=== PATIENT | female | born 1985 | race Caucasian/White ===

== ENCOUNTER 2016-08-29 17:56 | Emergency (ER) ==
[2016-08-29 18:07] VITALS: BP 120/74; TEMP 99.2; BMI 28.1
--- NOTE | 2016-08-29 18:14 | ED.PDOC ---
General ED Provider: Dr. BRENNA GIRON Chief Complaint: Non-specific Complaint Stated Complaint: patient c/o pain to left lower ribs. states it started in right lower ribs but went around to left. states she thinks it is her kidneys again. no change in urination but states it does have a smell and is orange in color. denies cough. states has had chills. but unsure if ran fever. also c/o headache Time Seen by Physician: 18:10 Mode of Arrival: Walk-In Information Source: Patient Exam Limitations: No limitations Nursing and Triage Documentation Reviewed and Agree: Yes Complaint Exam - Complaint/Exam Patient Complains of: Reports: Pain (upper abdomen ) Onset/Duration: 4 days Symptoms Are: Still present Timing: Constant Initial Severity: Moderate Current Severity: Severe Location of Pain: Reports: Right, Left, Flank Character: Reports: Sharp Aggravating: Reports: None Alleviating: Reports: None Associated Signs and Symptoms: Reports: Abdominal Pain. Denies: Diaphoresis, Back pain, Fever, Hematuria, Dysuria, Constipation, Blood in stool, Rectal pain , Appetite change, Nausea, Vomiting, Decreased urine output, Increased urine frequency, Increased thirst, Decreased activity, Lethargy, Bubble bath use, Vaginal bleeding, Vaginal discharge, Genital swelling, Genital blisters, Retained foreign body Ectopic Risk Factors: Reports: None Ovarian Torsion Risk Factors: Reports: None Surgical Obstruction Risk Factors: Reports: None RH Status: Unknown Abdominal Findings: Absent: McBurney's Point tender Differential Diagnoses: Renal Colic, Ureteral Stone, UTI Review of Systems - Review Of Systems Constitutional: Reports: Loss of appetite Eyes: Reports: No symptoms Ears, Nose, Mouth, Throat: Reports: No symptoms Respiratory: Reports: No symptoms Cardiac: Reports: Chest pain (lower Ribs bilaterally ) GI: Reports: Abdominal pain : Denies: Dysuria, Discharge, Flank pain Musculoskeletal: Reports: No symptoms Skin: Reports: No symptoms Neurological: Reports: No symptoms Endocrine: Reports: No symptoms Hematologic/Lymphatic: Reports: No symptoms All Other Systems: Reviewed and Negative Past Medical History - Past Medical History Previously Healthy: Yes Endocrine: Reports: None Cardiovascular: Reports: None Respiratory: Reports: Asthma Hematological: Reports: None Gastrointestinal: Reports: None Genitourinary: Reports: None Neuro/Psych: Reports: None Musculoskeletal: Reports: None Cancer: Reports: None Last Menstrual Period: now - Surgical History General Surgical History: Reports: Cholecystectomy, Tonsillectomy, Orthopedic ( Right foot ), Other (Nose ) - Family History Family History: Reports: Unknown - Social History Smoking Status: Current every day smoker Hx Substance Use: No Alcohol Screening: Occasionally Physical Exam - Physical Exam Appearance: Ill-appearing Ill-appearing: Moderate Pain Distress: Severe Neck: Supple Respiratory: Airway patent Cardiovascular: RRR GI/: Soft, Tender Musculoskeletal: Normal strength, ROM intact, No edema, No calf tenderness Skin: Warm, Dry Neurological: Sensation intact Psychiatric: Anxious Interpretation - Radiology Interpretation Radiology Interpretation By: Radiologist Radiology Results: Negative Exam Interpreted: CT Scan (Abdomen and pelvis. ) Critical Care Note - Critical Care Note Total Time (mins): 0 Course - Course Hematology/Chemistry: 08/29/16 18:51 08/29/16 18:51 Orders, Labs, Meds: Lab Review 08/29/16 08/29/16 18:10 18:51 WBC 9.99 RBC 5.13 Hgb 15.2 Hct 45.6 MCV 88.9 MCH 29.6 MCHC 33.3 RDW Coeff of Caitlin 14.9 H Plt Count 213 Immature Gran % (Auto) 0.4 Neut % (Auto) 57.6 Lymph % (Auto) 33.2 [place] % (Auto) 6.0 Eos % (Auto) 2.1 Baso % (Auto) 0.7 Immature Gran # (Auto) 0.0 Neut # 5.8 Lymph # 3.3 [place] # 0.6 Eos # 0.2 Baso # 0.1 Sodium 142 Potassium 3.5 Chloride 107 Carbon Dioxide 25 Anion Gap 13.5 BUN 8 Creatinine 0.84 Estimated GFR (MDRD) 80.00 BUN/Creatinine Ratio 9.52 Glucose 120 H Calcium 9.7 Total Bilirubin 0.45 AST 54 H ALT 71 Alkaline Phosphatase 102 H Total Protein 7.7 Albumin 3.8 Globulin 3.9 Albumin/Globulin Ratio 0.97 Amylase 55 Lipase 12 Urine Color Yellow Urine Clarity Cloudy Urine pH 5.5 Ur Specific [place] 1.025 Urine Protein Negative Urine Glucose (UA) Negative Urine Ketones Trace Urine Blood Negative Urine Nitrite Negative Urine Bilirubin 1+ Urine Urobilinogen 4.0 Ur Leukocyte Esterase Negative Urine Test Negative Orders Category Date Time Status ED IV/MEDIPORT/POWERPORT .ONCE EMERGENCY 08/29/16 18:36 Active AMYLASE Stat LAB 08/29/16 18:51 Completed CBC W/ AUTO DIFF Stat LAB 08/29/16 18:51 Completed COMPREHENSIVE METABOLIC PANEL Stat LAB 08/29/16 18:51 Completed LIPASE Stat LAB 08/29/16 18:51 Completed URINALYSIS C & S IF INDICATED Stat LAB 08/29/16 18:10 Completed URINE Stat LAB 08/29/16 18:10 Completed 0.9 % Sodium Chloride [Saline Flush] MEDS 08/29/16 18:36 Discontinued 1 syr IVF PRN PRN Ketorolac Tromethamine [Toradol] MEDS 08/29/16 18:43 Discontinued 30 mg IVP ONCE STA Ondansetron HCl/Pf [Zofran 4 mg/2 ml] MEDS 08/29/16 18:36 Discontinued 4 mg IVP ONCE STA Sodium Chloride 0.9% [Sodium Chloride] 1,000 ml MEDS 08/29/16 18:[address] ABD/PEL WO RENAL STONE PROT Stat RADS 08/29/16 18:36 Completed Medications Discontinued Medications Generic Name Dose Route Start Last Admin Trade Name Freq PRN Reason Stop Dose Admin Sodium Chloride 1,000 mls @ 1,000 mls/hr 08/29/16 18:36 08/29/16 19:06 Sodium Chloride IV 08/29/16 19:35 1,000 mls/hr BOLUS STA Administration Ketorolac Tromethamine 30 mg 08/29/16 18:43 08/29/16 19:07 Toradol IVP 08/29/16 18:44 30 mg ONCE STA Administration Ondansetron HCl 4 mg 08/29/16 18:36 08/29/16 19:06 Zofran 4 Mg/2 Ml IVP 08/29/16 18:37 4 mg ONCE STA Administration Sodium Chloride 1 syr 08/29/16 18:36 08/29/16 19:10 Saline Flush IVF 1 syr PRN PRN Administration To flush IV Vital Signs: Temp Pulse Resp BP Pulse Ox 08/29/16 17:58 99.2 F 69 16 120/74 98 Departure - Departure Time of Disposition: 20:02 Disposition: HOME SELF-CARE Discharge Problem: Abdominal pain Qualifiers: Abdominal location: generalized Qualifier Code: (R10.84) Generalized abdominal pain Instructions: Acute Abdominal Pain (ED) Condition: Fair Pt referred to PMD for follow-up: Yes Additional Instructions: Push fluids Rest Take pain medications as prescribed. Prescriptions: Tramadol HCl [Ultram] 50 mg PO Q6H PRN #25 tablet PRN Reason: Severe Pain Allergies/Adverse Reactions: Allergies No Known Allergies Allergy (Unverified 08/29/16 18:03) Home Medications: Ambulatory Orders Tramadol HCl [Ultram] 50 mg PO Q6H PRN #25 tablet 08/29/16 Disposition Discussed With: Patient
[2016-08-29 18:20] LABS: BILIRUBIN,URINE 1+ (NEGATIVE); KETONES,URINE Trace (NEGATIVE); LEUKOCYTE ESTERASE ,URINE Negative (NEGATIVE); NITRITE,URINE Negative (NEGATIVE); PH,URINE 5.5 (5-9); PROTEIN,URINE Negative (NEGATIVE); URINE, BLOOD Negative (NEGATIVE)
[2016-08-29 18:22] LABS: URINE PREGNANCY INTERNAL QC INTERNAL QC VALID
[2016-08-29 18:26] LABS: ADD URINE MICROSCOPIC NO
[2016-08-29] MEDS ORDERED: DILAUDID 1 MG/ML SYRINGE IVP STA (18:36)
[2016-08-29] MEDS ORDERED: MORPHINE 4 MG/ML SYRINGE IVP STA (18:36)
[2016-08-29] MEDS ORDERED: ZOFRAN 4 MG/2 ML IVP STA (18:36)
[2016-08-29] MEDS ORDERED: SODIUM CHLORIDE 1,000 ML IV STA (18:36)
[2016-08-29] MEDS ORDERED: TORADOL IVP STA (18:43)
[2016-08-29 18:58] LABS: BASOPHILS # (AUTO) 0.1 K/uL (0-0.2); BASOPHILS % (AUTO) 0.7 % (0.0-3.0); EOSINOPHILS # (AUTO) 0.2 K/ul (0.0-0.7); EOSINOPHILS % (AUTO) 2.1 % (0.0-7.0); HEMATOCRIT 45.6 % (37.0-47.0); HEMOGLOBIN 15.2 g/dl (12.0-16.0); IMMATURE GRANULOCYTE % (AUTO) 0.4 % (0.0-5.0); LYMPHOCYTES # (AUTO) 3.3 K/uL (0.60-3.4); LYMPHOCYTES % (AUTO) 33.2 (10.0-50.0); MEAN CORPUSCULAR HEMOGLOBIN 29.6 pg (27.0-31.0); MEAN CORPUSCULAR HGB CONC 33.3 (31.8-35.4); MEAN CORPUSCULAR VOLUME 88.9 fl (81.0-99.0); MONOCYTES # (AUTO) 0.6 K/uL (0.4-2.0); NEUTROPHILS # (AUTO) 5.8 K/ul (2.0-6.9); NEUTROPHILS % (AUTO) 57.6; PLATELET COUNT 213 10^3/uL (140-440); RED BLOOD COUNT 5.13 10^6/ul (4.20-5.40); WHITE BLOOD COUNT 9.99 K/ul (4.6-10.2)
[2016-08-29 19:19] LABS: ALBUMIN 3.8 g/dL (3.4-5.0); ALBUMIN/GLOBULIN RATIO 0.97; ANION GAP 13.5; BILIRUBIN,TOTAL 0.45 mg/dL (0.00-1.20); BUN/CREATININE RATIO 9.52; CALCIUM 9.7 mg/dL (8.2-10.2); CREATININE 0.84 mg/dL (0.60-1.30); POTASSIUM 3.5 mmol/L (3.5-5.10); TOTAL PROTEIN 7.7 g/dL (6.4-8.2)
--- NOTE | 2016-08-29 19:46 | CT ---
EXAM: CT Abdomen without contrast. CT Pelvis without contrast. HISTORY: Upper abdominal pain. COMPARISON: None available. TECHNIQUE: Multiple axial images of the abdomen and pelvis were obtained without intravenous contra st. Images were reformatted in the coronal plane. FINDINGS: Please note that evaluation of the abdominal and pelvic structures is limited due to lack of intravenous contrast. The lung bases are clear. No acute osseous abnormality identified. There is ankylosis across both sacroiliac joints. The gallbladder is absent. The liver, pancreas, spleen, adrenal glands and kidneys demonstrate norm al contour. No calcified renal stones or hydronephrosis detected. The bowel is normal in course and caliber without evidence for obstruction or inflammatory process. The appendix is normal. Uterus demonstrates normal contour. Urinary bladder is unremarkable. Phl eboliths noted in the pelvis. No free fluid or free air identified IMPRESSION: No acute abnormality in the abdomen or pelvis.
== END 2016-08-29 20:22 | disposition home or self-care (01) ==
LOC: ED 17:56
DX: R10.84 Generalized abdominal pain (principal); R07.89 Other chest pain; F17.210 Nicotine dependence, cigarettes, uncomplicated
CPT/HCPCS: 36415; 74176; 80053; 81001; 81025; 82150; 83690; 85025; 96361; 96374; 96375; 99283

== ENCOUNTER 2016-09-16 12:36 | Outpatient (CLI) | END 2016-09-16 12:37 | LOC: AMBL 12:36 | PROVIDERS: ATTEND Internal Medicine | DX: Z04.1 Encounter for examination and observation following transport accident (principal); V48.5XXA Car driver injured in noncollision transport accident in traffic accident, initial encounter ==

== ENCOUNTER 2017-02-08 23:43 | Emergency (ER) ==
--- NOTE | 2017-02-08 23:53 | ED.PDOC ---
General ED Provider: Dr. CARLOS ARTEAGA-ER Chief Complaint: Laceration Stated Complaint: i cut myself on a window going up the stairs Time Seen by Physician: 23:51 Mode of Arrival: Walk-In Information Source: Patient Exam Limitations: No limitations Nursing and Triage Documentation Reviewed and Agree: Yes Skin Complaint Exam - Laceration/Abrasion/Hand Complaint/Exam Location of Injury: Left, Digit #1 Mechanism of Injury: Laceration Onset/Duration: 30min Symptoms Are: Still present Initial Severity: Mild Current Severity: Mild Aggravating: Movement Alleviating: Compression Associated Signs and Symptoms: Denies: Fever, Chills, Erythema, Numbness, Tingling Differential Diagnoses: Laceration Review of Systems - Review Of Systems Constitutional: Reports: No symptoms Eyes: Reports: No symptoms Ears, Nose, Mouth, Throat: Reports: No symptoms Respiratory: Reports: No symptoms Cardiac: Reports: No symptoms GI: Reports: No symptoms : Reports: No symptoms Musculoskeletal: Reports: No symptoms Skin: Reports: No symptoms Neurological: Reports: No symptoms Endocrine: Reports: No symptoms Hematologic/Lymphatic: Reports: No symptoms All Other Systems: Reviewed and Negative Past Medical History - Past Medical History Previously Healthy: Yes Endocrine: Reports: None Cardiovascular: Reports: None Respiratory: Reports: Asthma Hematological: Reports: None Gastrointestinal: Reports: None Genitourinary: Reports: None Neuro/Psych: Reports: None Musculoskeletal: Reports: None Cancer: Reports: None Last Menstrual Period: 01/15/17 - Surgical History General Surgical History: Reports: Cholecystectomy, Tonsillectomy, Orthopedic ( Right foot ), Other (Nose ) - Family History Family History: Reports: Unknown - Social History Smoking Status: Current every day smoker, Light tobacco smoker Hx Substance Use: No Alcohol Screening: Occasionally Lives: With family - Immunizations Tetanus Shot up to Date: Yes Physical Exam - Physical Exam Appearance: Well-appearing, No pain distress, Well-nourished Pain Distress: Mild Eyes: BUBBA, EOMI, Conjunctiva clear ENT: Ears normal Neck: Supple Respiratory: Airway patent, Breath sounds clear, Breath sounds equal, Respirations nonlabored Cardiovascular: RRR, Pulses normal, No rub, No murmur GI/: Soft Musculoskeletal: Normal strength, ROM intact, No edema, No calf tenderness Skin: Warm Neurological: Sensation intact Psychiatric: Affect appropriate Procedures - Laceration/Wound Repair No standard instances Wound Description: Linear Wound Length (cm): 1.0cm left thumb Wound Explored: Clean Wound Irrigated: Yes Wound Prep: Hibiclens Anesthesia: Lidocaine Wound Repaired With: Sutures Suture Size and Type: 4.0 prolene Number of Sutures: 2 Layer Closure?: No Sterile Dressing Applied?: Yes Splint Applied?: No Sling Applied?: No Critical Care Note - Critical Care Note Total Time (mins): 0 Course - Course Orders, Labs, Meds: because of the nature of the injury--i wanted to do xrays but she declines--she understands she might have underlying fx but she was insistent she did not want xrays Vital Signs: Temp Pulse Resp BP Pulse Ox 02/08/17 23:44 98.8 F 108 H 20 96/80 96 Departure - Departure Time of Disposition: 23:54 Disposition: HOME SELF-CARE Discharge Problem: Laceration of thumb Qualifiers: Encounter type: initial encounter Damage to nail status: unspecified Foreign body presence: without foreign body Laterality: right Qualifier Code: (S61.011A ) Laceration without foreign body of right thumb without damage to nail, initial encounter Instructions: Laceration (ED), Finger Laceration (ED), Care For Your Stitches ( ED) Condition: Good Pt referred to PMD for follow-up: Yes Additional Instructions: routine suture care--sutures out in 7 days--return if any signs of infection Allergies/Adverse Reactions: Allergies No Known Allergies Allergy (Unverified 08/29/16 18:03) Home Medications: Ambulatory Orders Tramadol HCl [Ultram] 50 mg PO Q6H PRN #25 tablet 08/29/16 Disposition Discussed With: Patient
[2017-02-09 00:04] VITALS: BP 96/80; TEMP 98.8; BMI 25.7
[2017-02-09] MEDS ORDERED: LIDOCAINE 1 % AMP 5 ML (SUTURES) ID STA (00:08)
== END 2017-02-09 00:12 | disposition home or self-care (01) ==
LOC: ED 23:43
DX: S61.012A Laceration without foreign body of left thumb without damage to nail, initial encounter (principal); W25.XXXA Contact with sharp glass, initial encounter; F17.210 Nicotine dependence, cigarettes, uncomplicated
CPT/HCPCS: 99283

== ENCOUNTER 2017-08-15 17:07 | Inpatient (IN) ==
[2017-08-15 17:14] VITALS: BMI 22.8
--- NOTE | 2017-08-15 18:10 | ED.PDOC ---
General ED Provider: Dr. CARLOS RODRIGUEZ Chief Complaint: Urinary Problem Stated Complaint: Rt Flank Pain. Onset earlier today; Progressively worsened. Concered she may have kidney infection as she previouls developed urosepsis several years ago. Time Seen by Physician: 17:15 Mode of Arrival: Walk-In Information Source: Patient Exam Limitations: No limitations Nursing and Triage Documentation Reviewed and Agree: Yes Reviewed sepsis parameters & appropriate labs ordered?: Yes System Inflammatory Response Syndrome: Not Applicable Sepsis Protocol: For patient's 13 years and over: Temp is 96.8 and below OR 101 and greater Pulse >90 BPM Resp >20/minute Acutely Altered Mental Status Are patient's symptoms suggestive of a new infection, such as: -Pneumonia -Skin, Soft Tissue -Endocarditis -UTI -Bone, Joint Infection -Implantable Device -Acute Abdominal Infection -Wound Infection -Meningitis -Blood Stream Catheter Infection -Unknown System Inflammatory Response Syndrome: Not Applicable Complaint Exam - UTI Female Complaint/Exam Patient Complains of: Denies: Painful urination, Blood in urine Symptoms Are: Still present Timing: Constant Initial Severity: Moderate Current Severity: Moderate Location of Pain: Reports: Right, Flank Associated Signs and Symptoms: Reports: Flank pain. Denies: Fever, Chills, Vaginal discharge Related History: Reports: Similar episode Related Surgical History: Reports: None CVA Tenderness: Yes Differential Diagnoses: Pyelonephritis Review of Systems - Review Of Systems Constitutional: Reports: No symptoms Eyes: Reports: No symptoms Ears, Nose, Mouth, Throat: Reports: No symptoms Respiratory: Reports: No symptoms Cardiac: Reports: No symptoms GI: Reports: No symptoms : Reports: Flank pain Musculoskeletal: Reports: No symptoms Skin: Reports: No symptoms Neurological: Reports: No symptoms Endocrine: Reports: No symptoms Hematologic/Lymphatic: Reports: No symptoms All Other Systems: Reviewed and Negative Past Medical History - Past Medical History Previously Healthy: Yes Endocrine: Reports: None Cardiovascular: Reports: None Respiratory: Reports: Asthma Hematological: Reports: None Gastrointestinal: Reports: None Genitourinary: Reports: None Neuro/Psych: Reports: None Musculoskeletal: Reports: None Cancer: Reports: None Last Menstrual Period: 07/2017 - Surgical History General Surgical History: Reports: Cholecystectomy, Tonsillectomy, Orthopedic ( Right foot ), Other (Nose ) - Family History Family History: Reports: Unknown - Social History Smoking Status: Current some day smoker Hx Substance Use: No Alcohol Screening: None - Immunizations Tetanus Shot up to Date: Yes Physical Exam - Physical Exam Appearance: Well-appearing, Ill-appearing Ill-appearing: Mild Pain Distress: Moderate Eyes: BUBBA, EOMI, Conjunctiva clear ENT: Ears normal, Nose normal, Oropharynx normal Neck: Nonsupple Respiratory: Airway patent, Breath sounds clear, Breath sounds equal Cardiovascular: RRR, Pulses normal GI/: Soft, Tender (No guarding or rebound), Bowel sounds hypoactive Musculoskeletal: Normal strength, ROM intact Skin: Warm, Dry Psychiatric: Affect appropriate, Mood appropriate Re-Evaluation - Re-Evaluation Time of Re-Evaluation: 18:50 Status: Unchanged Vital Signs Stable: Yes Appearance: NAD Neuro: Alert and Oriented X3 Additional Comments: IV started /CT scheduled Physician Notification - Case Discussed Physician Notified: Dr Guerrero Time of Notification: 19:50 (Discussed case/agreed to accept patient for care for remainder of time in ER pending result of CT scan; ) Critical Care Note - Critical Care Note Total Time (mins): 0 Course - Course Hematology/Chemistry: 08/15/17 18:20 08/15/17 18:20 Orders, Labs, Meds: Lab Review 08/15/17 08/15/17 08/15/17 17:20 17:20 18:20 WBC 15.63 H RBC 4.60 Hgb 13.4 Hct 39.8 MCV 86.5 MCH 29.1 MCHC 33.7 RDW Coeff of Caitlin 14.5 Plt Count 199 Immature Gran % (Auto) 0.5 Neut % (Auto) 76.5 Lymph % (Auto) 15.9 [place] % (Auto) 6.3 Eos % (Auto) 0.4 Baso % (Auto) 0.4 Immature Gran # (Auto) 0.1 Neut # 12.0 H Lymph # 2.5 [place] # 1.0 Eos # 0.1 Baso # 0.1 Sodium Potassium Chloride Carbon Dioxide Anion Gap BUN Creatinine Estimated GFR (MDRD) BUN/Creatinine Ratio Glucose Calcium Total Bilirubin AST ALT Alkaline Phosphatase Total Protein Albumin Globulin Albumin/Globulin Ratio Urine Color Yellow Urine Clarity Clear Urine pH 7.0 Ur Specific [place] 1.015 Urine Protein Negative Urine Glucose (UA) Negative Urine Ketones Negative Urine Blood Negative Urine Nitrite Negative Urine Bilirubin Negative Urine Urobilinogen 0.2 Ur Leukocyte Esterase Negative Urine Test Negative 02/03/18 18:20 WBC RBC Hgb Hct MCV MCH MCHC RDW Coeff of Caitlin Plt Count Immature Gran % (Auto) Neut % (Auto) Lymph % (Auto) [place] % (Auto) Eos % (Auto) Baso % (Auto) Immature Gran # (Auto) Neut # Lymph # [place] # Eos # Baso # Sodium 142 Potassium 3.8 Chloride 109 H Carbon Dioxide 26 Anion Gap 10.8 BUN 11 Creatinine 0.76 Estimated GFR (MDRD) 89.00 BUN/Creatinine Ratio 14.47 Glucose 90 Calcium 9.2 Total Bilirubin 0.3 AST 18 ALT 21 Alkaline Phosphatase 87 Total Protein 6.7 Albumin 3.3 L Globulin 3.4 Albumin/Globulin Ratio 0.97 Urine Color Urine Clarity Urine pH Ur Specific [place] Urine Protein Urine Glucose (UA) Urine Ketones Urine Blood Urine Nitrite Urine Bilirubin Urine Urobilinogen Ur Leukocyte Esterase Urine Test Orders Category Date Time Status NPO REMINDER: IMAGING ONCE CARE 08/15/17 19:24 Active CBC W/ AUTO DIFF Stat LAB 08/15/17 18:20 Completed CMP [COMPREHENSIVE METABOLIC PANEL] Stat LAB 08/15/17 18:20 Completed URINALYSIS C & S IF INDICATED Stat LAB 08/15/17 17:20 Completed URINE Stat LAB 08/15/17 17:20 Completed Hydromorphone HCl [Dilaudid 1 mg/ml Syringe] MEDS 08/15/17 19:27 Discontinued 1 mg IM ONCE STA Levofloxacin/D5w [Levaquin] 500 mg MEDS 08/15/17 20:03 Active Premix 100 ml D5w 1 bag IV ONCE Sodium Chloride 0.9% [Sodium Chloride] 500 ml MEDS 08/15/17 19:[address] ABDOMEN/PELVIS W/WO CONTRAS Stat RADS 08/15/17 19:24 Taken Medications Generic Name Dose Route Start Last Admin Trade Name Freq PRN Reason Stop Dose Admin Sodium Chloride 500 mls @ 500 mls/hr 08/15/17 19:26 08/15/17 19:48 Sodium Chloride IV 08/15/17 20:25 500 mls/hr BOLUS STA Administration Levofloxacin/Dextrose 500 mg/ 100 mls @ 100 mls/hr 08/15/17 20:03 Dextrose IV 08/15/17 21:02 ONCE STA Discontinued Medications Generic Name Dose Route Start Last Admin Trade Name Freq PRN Reason Stop Dose Admin Hydromorphone HCl 1 mg 08/15/17 19:27 08/15/17 19:47 Dilaudid 1 Mg/Ml Syringe IM 08/15/17 19:28 1 mg ONCE STA Administration Vital Signs: Temp Pulse Resp BP Pulse Ox 08/15/17 17:10 98.6 F 89 16 131/77 99 Departure - Departure Time of Disposition: 20:30 Disposition: ADMITTED INPATIENT Discharge Problem: Pyelonephritis Condition: Good Pt referred to PMD for follow-up: Yes IPMP verified?: No Prescriptions: Levofloxacin [Levaquin] 500 mg PO ONCE #5 tablet Allergies/Adverse Reactions: Allergies No Known Allergies Allergy (Verified 02/08/17 23:59) Home Medications: Ambulatory Orders Levofloxacin [Levaquin] 500 mg PO ONCE #5 tablet 08/15/17 Disposition Discussed With: Patient Additional Information: Patient administered Levaquin 500mg IVPB Once CT returns if patient remails stable anticipate discharge to home for outpatient therapy. Dr Guerrero aware of patient and will accept management until CT results returned and will plan on admitting patient Dsicusse with patient
[2017-08-15] MEDS ORDERED: SODIUM CHLORIDE 500 ML IV STA (19:26)
[2017-08-15] MEDS ORDERED: DILAUDID 1 MG/ML SYRINGE IM STA (19:27)
[2017-08-15] MEDS ORDERED: LEVAQUIN 500 MG in PREMIX 100 ML D5W 1 BAG IV STA (20:03)
--- NOTE | 2017-08-15 20:09 | CT ---
EXAM: CT ABDOMEN AND PELVIS HISTORY: Abdominal pain, urinary problems. TECHNIQUE: CT abdomen pelvis with and without intravenous contrast. Multiplanar images provided. 7 5 ml Omnipaque. FINDINGS: Comparison may be made to 08/29/2016. Relative paucity of intraperitoneal fat leads to suboptimal visualization of certain organs and abdom inal compartments. No focal hepatic or splenic lesion identified. Gallbladder appears to be absent. No acute pancreatic abnormality is seen. Adrenal glands are within normal limits. Normal enhancem ent of the kidneys without evidence of hydronephrosis. There is no nephrolithiasis. The visualized ureters were clear. Normal abdominal aorta. . Stomach grossly within normal limits. A few portions of what appears to represent the appendix are s een and appear normal. Nonobstructive bowel gas pattern. Uterus and urinary bladder appear normal. There is a peripherally enhancing 1.8 cm cystic mass in the right adnexa suggesting an involuting cy st or a dominant follicle. Trace pelvic ascites likely physiologic. No ventral abdominal wall hernia. There appears to be mild scoliosis convex to the right. The sacro iliac joints appear fused. Lung bases are free of acute infiltrate. No pneumoperitoneum is seen. IMPRESSION: 1. Kidneys, visualized ureters and urinary bladder appear normal. 2. There is a 1.8 cm peripherally enhancing cystic mass in the right adnexa most consistent with an involuting cyst or dominant follicle. Trace amount of pelvic ascites likely physiologic. 3. Fusion of the sacroiliac joints consistent with severe sacroiliitis.
[2017-08-15] MEDS ORDERED: LEVAQUIN 100 ML IV ONE (20:11)
[2017-08-15] MEDS ORDERED: MORPHINE 2 MG/ML SYRINGE IVP SCH (20:30)
[2017-08-15] MEDS ORDERED: ZOFRAN 4 MG/2 ML IVP SCH (20:30)
[2017-08-15] MEDS: MORPHINE 2 MG/ML SYRINGE IVP SCH (22:07)
[2017-08-15] MEDS: ZOFRAN 4 MG/2 ML IVP SCH (22:07)
[2017-08-16] MEDS: SODIUM CHLORIDE 1,000 ML IV SCH ×2 (01:12→14:41)
[2017-08-16] MEDS: MORPHINE 2 MG/ML SYRINGE IVP SCH ×3 (05:00→21:09)
[2017-08-16] MEDS: ZOFRAN 4 MG/2 ML IVP SCH ×3 (05:00→21:09)
[2017-08-16] MEDS: LEVAQUIN 500 MG in PREMIX 100 ML D5W 1 BAG IV SCH (09:24)
[2017-08-17] MEDS: SODIUM CHLORIDE 1,000 ML IV SCH ×2 (04:52→18:37)
[2017-08-17] MEDS: ZOFRAN 4 MG/2 ML IVP SCH ×3 (05:55→22:20)
[2017-08-17] MEDS: MORPHINE 2 MG/ML SYRINGE IVP SCH ×2 (05:55→14:14)
[2017-08-17] MEDS: LEVAQUIN 500 MG in PREMIX 100 ML D5W 1 BAG IV SCH (08:39)
--- NOTE | 2017-08-17 11:09 | HP ---
DATE OF SERVICE: 08/15/17 CHIEF COMPLAINT: Back pain lower right side, last time had similar symptom. The patient has UTI and pyelonephritis. HISTORY OF PRESENT ILLNESS: Last time she had a similar symptoms the patient has acute pyelonephritis and has to be admitted to the hospital. The patient came to the emergency room and was seen by Dr. Delgado. The patient did take some antibiotics last month. WBC 15.63, chemistry normal, urine negative. Clinically the patient has right CVA tenderness and right Vaughan signs positive. CT of abdomen and pelvis did not show the pyelonephritis but clinically the pyelonephritis with the left shift with history of a recurrent UTI. The patient been admitted to the hospital for IV antibiotics and the pain control. REVIEW OF SYSTEMS: CONSTITUTIONAL: Feverish feeling, some chills. HEENT: Normal. ENDOCRINE: No weight gain; no weight loss. CVS: No chest pain. No PND, no orthopnea. No shortness of breath. No PND, no orthopnea. RESPIRATORY: No cough, no congestion. No hemoptysis. GI: Nausea, no vomiting. Right abdominal pain. No melena. : No hematuria. No polyuria. MUSCULOSKELETAL: No joint swelling. PSYCHIATRIC: Not anxious. No depression. No suicidal thoughts. No homicidal thoughts. SKIN: Intact, no open lesions. PAST MEDICAL HISTORY: None PAST SURGICAL HISTORY: None PERSONAL HISTORY: The patient does smoke, no alcohol and no drugs. The patient is and works at the [employer]. MEDICATIONS: None ALLERGIES: No known allergies. PHYSICAL EXAMINATION: V/S: Blood pressure 131/77, respiratory rate 16, heart rate 89, temperature 98.6 and saturation 99%. HEENT: Atraumatic, normocephalic. No scleral icterus. Pallor positive. Mucosa dry. NECK: Supple. No JVD, no bruit. No lymphadenopathy. No thyromegaly. HEART: S1, S2 normal. No murmur. No cyanosis or clubbing. No ascites. LUNGS: Clear to auscultation. No rales or rhonchi. ABDOMEN: Soft. Right upper quadrant tenderness. Bowel sounds are active. Right sided CVA tenderness is present. No rigidity or guarding. EXTREMITIES: No pedal edema. No cyanosis or clubbing. MUSCULOSKELETAL: Normal joints, no swelling. NEUROLOGIC: The patient is SKIN: Intact; no open lesions. LYMPHATIC: No lymph nodes palpable. LABS: WBC 15.63, hgb 13.4, hct 39.8, plt count 199, sodium 142, potassium 3.8, chloride 109, bicarb 26, BUN 11, creatinine 0.76. ASSESSMENT: 1. Right acute pyelonephritis clinically, CT scan showing the right pelvic adnexal cyst PLAN: 1. Admit patient to the regular floor 2. CBC and CMP today and daily 3. IV fluids 4. Levaquin daily 5. Morphine for the pain. TIME SPENT: MORE THAN 75 minutes MTDD
--- NOTE | 2017-08-17 11:19 | PN ---
DATE OF SERVICE: 08/16/17 SUBJECTIVE: The patient was admitted clinically right sided pyelonephritis. The patient is still having the right flank pain. No fever or chills. REVIEW OF SYSTEMS: CONSTITUTIONAL: No fever, no chills. HEENT: Normal. ENDOCRINE: No weight gain, no weight loss. CVS: No angina symptoms. No CHF symptoms. No palpitations. No atypical chest pain for CAD. No shortness of breath. No PND, no orthopnea. RESPIRATORY: No cough, no hemoptysis. GI: No nausea, no vomiting. No abdominal pain. : No hematuria. No polyuria. MUSCULOSKELETAL: No joint swelling. PSYCHIATRIC: Not anxious. No depression. No suicidal thoughts. No homicidal thoughts. SKIN: Intact. No rash. PHYSICAL EXAMINATION: V/S: Blood pressure 101/48, respiratory rate 18, heart rate 66, temperature 98.3 with saturation 98%. HEENT: Normocephalic, atraumatic. Mucosa dry. NECK: Supple. No JVD, no carotid bruit. No lymphadenopathy. LUNGS: Clear to auscultation. No rales or rhonchi. HEART: S1, S2 normal. No S3. No murmur, gallop or regurgitation. ABDOMEN: Soft, right flank tenderness is present. Bowel sounds normal. No rigidity. No rebound or guarding. CVA tenderness. Right lower quadrant tenderness is present. EXTREMITIES: No pedal edema. No clubbing or cyanosis MUSCULOSKELETAL: No joint swelling. NEUROLOGIC: Awake, alert, oriented times three. No focal deficit. LYMPHATIC: No lymph nodes palpable. SKIN: Intact. LABS: WBC 8.0, hgb 12.1, hct 36.3, plt count 157, sodium 142, potassium 3.8, chloride 109, bicarb 26, BUN 11, creatinine 0.76 ASSESSMENT: 1. Right sided pyelonephritis clinically 2. Right pelvic pain from the adnexal cyst 3. History of cholecystectomy 4. History of recurrent UTI 5. Nicotine use PLAN: 1. Continue the Levaquin 2. Morphine for the pain 3. IV fluids 4. Out of bed to chair activity as tolerated 5. Will get Pelvic Ultrasound in the morning. TIME SPENT: More than 35 minutes MTDD
--- NOTE | 2017-08-17 13:27 | US ---
EXAM: Transvaginal pelvic ultrasound. History: Pelvic pain and urinary problems Comparison: CT abdomen pelvis 08/15/2017 Technique: Multiple sonographic images through the pelvis were obtained. Color duplex Doppler was u sed to interrogate vascular flow. Findings: Uterus measures 8.1 cm x 4.2 cm x 4.6 cm. Endometrium measures 0.6 cm in thickness. Small to modera te amount of fluid seen within the pelvis. Both ovaries are normal in size. Blood flow is documented within each ovary. 1 cm involuting follic le or hemorrhagic cyst within the right ovary. No adnexal masses. Impression: 1. Small involuting follicle or hemorrhagic cyst within the right ovary. 2. Small to moderate amount of pelvic free fluid.
[2017-08-17] MEDS: NORCO 5-325 PO PRN (22:26)
[2017-08-18 05:21] VITALS: BP 95/59; TEMP 98.1
[2017-08-18] MEDS: ZOFRAN 4 MG/2 ML IVP SCH (05:28)
[2017-08-18] MEDS: NORCO 5-325 PO PRN (07:11)
[2017-08-18] MEDS: LEVAQUIN 500 MG in PREMIX 100 ML D5W 1 BAG IV SCH (08:37)
--- NOTE | 2017-08-21 15:33 | DS ---
DATE OF SERVICE: 08/18/17 FINAL DIAGNOSIS: 1. Clinical pyelonephritis, right flank pain 2. Right pelvic mass 3. Hemorrhagic cyst of the right ovary 4. Anemia dilutional most likely 5. History of cholecystectomy 6. History of recurrent UTI 7. Nicotine use DISCHARGE INSTRUCTIONS: Discharge the patient home. Followup in the [facility] within 5 days. Needs OBGYN evaluation as a followup. MEDICATIONS AT DISCHARGE/NEW PRESCRIPTIONS: Omnicef 300mg PO twice a day for 5 days. Hydrocodone 5mg twice a day for 5 days DIET INSTRUCTIONS: As tolerated ACTIVITY: As tolerated SMOKING: Current everyday smoker DISEASE SPECIFIC EDUCATION: Recurrent UTI Hydration Been discussed and verbalized understanding. HOSPITAL COURSE: Marysol Garcia who is a 31 year old female came to the emergency room with the right flank pain and CVA tenderness, burning and frequency of urination. The patient has a history of recurrent urinary tract infections and sepsis. Came to the emergency room and urine was negative but the patient was having the right sided CVA tenderness and CT abdomen negative but did show the right pelvic mass and WBC was almost 15,000, 15.63 with left shift. At that time the patient was admitted to the hospital and started on the IV antibiotics Rocephin and IV fluids. Toradol for the pain. With the given medication the patient was still hurting in the right flank area. Blood pressure down to 88/55. IV fluids were continued and we did obtain the right pelvic ultrasound for pelvic mass which did show the hemorrhagic cyst. Meanwhile the patient has been up and about and walking. Did not have any complication. At that time the patient being discharged home and specifically informed that she needs to have a followup in the [facility] and also advised to have followup with OBGYN for further evaluation and treatment of the right pelvis mass. TIME SPENT: MORE THAN 65 MINUTES MTDD
== END 2017-08-18 10:50 | disposition home or self-care (01) | DRG 690 ==
LOC: ED 17:07 → MEDSURG A 21:16
PROVIDERS: ADMIT Emergency Medicine; ATTEND Emergency Medicine
DX: N12 Tubulo-interstitial nephritis, not specified as acute or chronic (principal); N83.01 Follicular cyst of right ovary; R19.03 Right lower quadrant abdominal swelling, mass and lump; D64.9 Anemia, unspecified; Z87.440 Personal history of urinary (tract) infections; Z90.49 Acquired absence of other specified parts of digestive tract; Z72.0 Tobacco use
CPT/HCPCS: 36415; 80053; 81001; 81025; 85025; 96365; 96366; 96375; 99284

== ENCOUNTER 2018-03-08 18:39 | Emergency (ER) | payer MEDICAID, OTHER ==
[2018-03-08 19:11] VITALS: BP 118/88; TEMP 98.4; BMI 23.0
[2018-03-08] MEDS ORDERED: TORADOL IM STA (19:34)
--- NOTE | 2018-03-08 19:37 | ED.PDOC ---
General ED Provider: Dr. GELACIO HERNADEZ Chief Complaint: Foot Pain/Injury Stated Complaint: Injured right foot, now the pain in the right foot and ankle Time Seen by Physician: 19:35 Mode of Arrival: Wheelchair Information Source: Patient Nursing and Triage Documentation Reviewed and Agree: Yes Does patient meet sepsis criteria?: No If yes, has appropriate treatment been initiated?: No System Inflammatory Response Syndrome: Not Applicable Sepsis Protocol: For patient's 13 years and over: Temp is 96.8 and below OR 101 and greater Pulse >90 BPM Resp >20/minute Acutely Altered Mental Status Are patient's symptoms suggestive of a new infection, such as: -Pneumonia -Skin, Soft Tissue -Endocarditis -UTI -Bone, Joint Infection -Implantable Device -Acute Abdominal Infection -Wound Infection -Meningitis -Blood Stream Catheter Infection -Unknown Musculoskeletal Complaint Exam - Ankle/Foot Complaint/Exam Location of Injury: Reports: Right, Ankle, Foot Mechanism of Injury: Reports: Trauma Symptoms Are: Reports: Still present Onset of Pain: Reports: Immediate Initial Severity: Moderate Current Severity: Moderate Location: Reports: Discrete Character: Reports: Aching, Throbbing Alleviating: Reports: None Aggravating: Reports: Movement, Weight bearing Able to Bear Weight: Yes Associated Signs and Symptoms: Denies: Swelling, Redness, Bruising, Fever, Weakness, Numbness, Tingling Related History: Reports: Similar episode Gout Risk Factors: Reports: None Related Surgical History: Reports: None Lower Extremity Findings: Absent: Swelling, Ecchymosis, Abnormal contour Achilles Tendon Abnormality: No Tenderness: Present: Lateral malleolus, Midfoot, Metatarsals Limited Range of Motion: Present: Inversion, Eversion, Dorsiflexion, Plantarflexion Differential Diagnosis: Closed Fracture, Sprain Review of Systems - Review Of Systems Constitutional: Reports: No symptoms Eyes: Reports: No symptoms Ears, Nose, Mouth, Throat: Reports: No symptoms Respiratory: Reports: No symptoms Cardiac: Reports: No symptoms GI: Reports: No symptoms : Reports: No symptoms Musculoskeletal: Reports: Joint pain Skin: Reports: No symptoms Neurological: Reports: No symptoms Endocrine: Reports: No symptoms Hematologic/Lymphatic: Reports: No symptoms All Other Systems: Reviewed and Negative Past Medical History - Past Medical History Previously Healthy: Yes Endocrine: Reports: None Cardiovascular: Reports: None Respiratory: Reports: Asthma Hematological: Reports: None Gastrointestinal: Reports: None Genitourinary: Reports: None Neuro/Psych: Reports: None Musculoskeletal: Reports: None Cancer: Reports: None Last Menstrual Period: last week - Surgical History General Surgical History: Reports: Cholecystectomy, Tonsillectomy, Orthopedic ( Right foot ), Other (Nose ) - Family History Family History: Reports: Unknown - Social History Smoking Status: Current some day smoker Hx Substance Use: No Alcohol Screening: None Physical Exam - Physical Exam Appearance: Well-appearing, No pain distress, Well-nourished Eyes: BUBBA, EOMI, Conjunctiva clear ENT: Ears normal, Nose normal, Oropharynx normal Respiratory: Airway patent, Breath sounds clear, Breath sounds equal, Respirations nonlabored Cardiovascular: RRR, Pulses normal, No rub, No murmur GI/: Soft, Nontender, No masses, Bowel sounds normal, No Organomegaly Musculoskeletal: Normal strength, ROM intact, No edema, No calf tenderness Skin: Warm, Dry, Normal color Neurological: Sensation intact, Motor intact, Reflexes intact, Cranial nerves intact, Alert, Oriented Psychiatric: Affect appropriate, Mood appropriate Interpretation - Radiology Interpretation Radiology Interpretation By: Radiologist Radiology Results: Negative Exam Interpreted: CXR Critical Care Note - Critical Care Note Total Time (mins): 30 Course - Course Orders, Labs, Meds: Orders Category Date Time Status Ketorolac Tromethamine [Toradol] MEDS 03/08/18 19:34 Discontinued 30 mg IM ONCE STA ANKLE, RIGHT MIN 3 VIEWS Stat RADS 03/08/18 19:34 Completed FOOT, RIGHT 3 VIEWS Stat RADS 03/08/18 19:34 Completed Medications Discontinued Medications Generic Name Dose Route Start Last Admin Trade Name Juan Rq PRN Reason Stop Dose Admin Ketorolac Tromethamine 30 mg 03/08/18 19:34 03/08/18 19:47 Toradol IM 03/08/18 19:35 30 mg ONCE STA Administration Vital Signs: Temp Pulse Resp BP Pulse Ox 03/08/18 18:57 98.4 F 100 H 18 118/88 97 Departure - Departure Time of Disposition: 19:38 Disposition: HOME SELF-CARE Discharge Problem: Injury of foot Instructions: Foot Sprain (ED) Condition: Stable Pt referred to PMD for follow-up: Yes IPMP verified?: No Additional Instructions: Rest Hot pack f/u RHC in 2-3 days Prescriptions: Meloxicam [Mobic] 7.5 mg PO BID #14 tablet Allergies/Adverse Reactions: Allergies No Known Allergies Allergy (Verified 03/08/18 19:02) Home Medications: Ambulatory Orders Meloxicam [Mobic] 7.5 mg PO BID #14 tablet 03/08/18 Disposition Discussed With: Patient
--- NOTE | 2018-03-08 20:05 | DI ---
EXAM: Three views of the right foot. HISTORY: Right foot pain with history of foot fracture. FINDINGS: The bones are intact with no evidence of fracture. The joint spaces are maintained. There is an enthesophyte along the plantar margin of the calcaneus. There is soft tissue swelling along t he lateral margin of the right fifth metatarsal phalangeal joint. Impression: No evidence of fracture. Calcaneal enthesophyte. Soft tissue swelling as described.
--- NOTE | 2018-03-08 20:05 | DI ---
EXAM: Four view right ankle COMPARISON: Right foot from same day and right ankle from 12/24/2014 HISTORY: Trauma and pain FINDINGS: There is no acute fracture or dislocation. Alignment is anatomic. There is an old fractur e of the lateral malleolus. The ankle mortise is preserved. There is no soft tissue swelling. No une xpected radio-opaque foreign bodies. There is a calcaneal plantar spur. IMPRESSION: No acute osseous abnormality.
== END 2018-03-08 20:13 | disposition home or self-care (01) ==
LOC: ED 18:39
DX: S99.921A Unspecified injury of right foot, initial encounter (principal); M25.571 Pain in right ankle and joints of right foot; F17.210 Nicotine dependence, cigarettes, uncomplicated
CPT/HCPCS: 96372; 99282

== ENCOUNTER 2018-07-30 13:07 | Emergency (ER) ==
[2018-07-30 13:08] VITALS: BP 109/70; TEMP 98.1; BMI 22.4
[2018-07-30] MEDS ORDERED: ROCEPHIN 2 GM in SODIUM CHLORIDE 100 ML IV STA (13:21)
[2018-07-30] MEDS ORDERED: ZOFRAN 4 MG/2 ML IVP STA (13:22)
[2018-07-30] MEDS ORDERED: ROCEPHIN ONE (13:33)
--- NOTE | 2018-07-30 14:43 | CT ---
EXAM: CT of the head without contrast History: Headache and neck stiffness. Technique: Multiplanar CT images through the head were obtained without the administration of IV con trast Findings: The visualized paranasal sinuses and mastoid air cells are clear in general. No acute frantz varial abnormalities. Intracranially the ventricular and cisternal spaces are normal in size, shape and configuration for a patient of this age. No dominant mass or midline shift. No hydrocephalous. No acute intracranial hemorrhage or abnormal extraaxial fluid collections. Impression: No acute intracranial process
--- NOTE | 2018-07-30 14:46 | CT ---
EXAM: CT of the chest without contrast History: Headache and neck stiffness, chest pain. Comparison: Chest radiograph 08/28/2013 Technique: Multiplanar CT images through the thorax were obtained without the administration of IV c ontrast Findings: Heart size is normal. No pericardial effusion. Great vessels are unremarkable. No patho logically enlarged thoracic lymph nodes. No consolidation. No pleural fluid and no pneumothorax. M inimal upper lobe predominant paraseptal and centrilobular emphysema. No lung masses or lung nodules . Within the visualized upper abdomen, status post cholecystectomy. No acute osseous abnormalities. Impression: 1. No acute intrathoracic process. 2. Minimal upper lobe predominant emphysema
[2018-07-30] MEDS ORDERED: DILAUDID 0.5 MG/0.5 ML SYRINGE IVP STA (15:20)
--- NOTE | 2018-07-30 15:23 | ED.PDOC ---
General ED Provider: Dr. BLANE MARQUEZ Chief Complaint: Nausea/Vomiting Stated Complaint: nausea, vomiting, headache , neck pain Time Seen by Physician: 13:10 (1 day ago seen with elsa at all times no head injury) Mode of Arrival: Walk-In Information Source: Patient Exam Limitations: No limitations Primary Care Provider: PING CARTER Nursing and Triage Documentation Reviewed and Agree: Yes Does patient meet sepsis criteria?: No If yes, has appropriate treatment been initiated?: No System Inflammatory Response Syndrome: Not Applicable Sepsis Protocol: For patient's 13 years and over: Temp is 96.8 and below OR 101 and greater Pulse >90 BPM Resp >20/minute Acutely Altered Mental Status Are patient's symptoms suggestive of a new infection, such as: -Pneumonia -Skin, Soft Tissue -Endocarditis -UTI -Bone, Joint Infection -Implantable Device -Acute Abdominal Infection -Wound Infection -Meningitis -Blood Stream Catheter Infection -Unknown Neurological Complaint Exam - Headache Complaint/Exam Onset: Gradual Duration: 1 day Symptoms Are: Still present Timing: Constant Episodes Lasting: Hours Worst Headache Ever: No Initial Severity: Moderate Current Severity: Moderate Location: Diffuse Aggravating: Reports: Position change Alleviating: Reports: Rest Associated Signs and Symptoms: Reports: Nausea, Vomiting, Neck pain (but moves her neck in direction ), Neck stiffness Related Surgical History: Reports: None SAH Risk Factors: Reports: None Meningitis Risk Factors: Reports: None SDH Risk Factors: Reports: None Temporal Arteritis Risk Factors: Reports: None Normal Head CT Within Last 12 Months: No (none done ) Fundoscopic Exam: Present: Normal Findings Papilledema Present: No Temporal Artery Tenderness: Present: None Sinus Tenderness: Present: None TMJ Tenderness: Present: None Meningeal Signs Positive: No Pain on Passive Flexion-Positive Kernig's: Yes ROM Limited In: No Limitiations Focal Weakness: Present: None Focal Sensory Loss: Present: None Gait: Normal Nystagmus Present: No Gag Reflex Present: Yes [id number]: Normal Findings Babinski Sign: Negative Right, Negative Left Differential Diagnoses: Meningitis, Migraine, Tension Headache, Viral Syndrome Review of Systems - Review Of Systems Constitutional: Reports: No symptoms Eyes: Reports: No symptoms Ears, Nose, Mouth, Throat: Reports: No symptoms Respiratory: Reports: No symptoms Cardiac: Reports: No symptoms GI: Reports: No symptoms : Reports: No symptoms Musculoskeletal: Reports: No symptoms Skin: Reports: No symptoms Neurological: Reports: Headache Endocrine: Reports: No symptoms Hematologic/Lymphatic: Reports: No symptoms All Other Systems: Reviewed and Negative Past Medical History - Past Medical History Previously Healthy: Yes Endocrine: Reports: None Cardiovascular: Reports: None Respiratory: Reports: Asthma Hematological: Reports: None Gastrointestinal: Reports: None Genitourinary: Reports: None Neuro/Psych: Reports: None Musculoskeletal: Reports: None Cancer: Reports: None Last Menstrual Period: 06/29/18 - Surgical History General Surgical History: Reports: Cholecystectomy, Tonsillectomy, Orthopedic ( Right foot ), Other (Nose ) - Family History Family History: Reports: Unknown - Social History Smoking Status: Current some day smoker Hx Substance Use: No Alcohol Screening: None - Immunizations Tetanus Shot up to Date: No Physical Exam - Physical Exam Appearance: Well-appearing, No pain distress, Well-nourished Eyes: BUBBA, EOMI, Conjunctiva clear ENT: Ears normal, Nose normal, Oropharynx normal Respiratory: Airway patent, Breath sounds clear, Breath sounds equal, Respirations nonlabored Cardiovascular: RRR, Pulses normal, No rub, No murmur GI/: Soft, Nontender, No masses, Bowel sounds normal, No Organomegaly Musculoskeletal: Normal strength, ROM intact, No edema, No calf tenderness Skin: Warm, Dry, Normal color Neurological: Sensation intact, Motor intact, Reflexes intact, Cranial nerves intact, Alert, Oriented Psychiatric: Affect appropriate, Mood appropriate - NIH Stroke Scale 1a. Level of Consciousness: 0=Alert and keenly responsive 1b. Level of Consciousness Questions: 0=Answers correctly to two questions 1c. Level of Consciousness Commands: 0=Performs two tasks correctly 2. Best Gaze: 0=Normal 3. Visual: 0=No visual loss 4. Facial Palsy: 0=Normal 5a. Motor Left Arm: 0=No drift,arm holds 90 degrees for 10 sec., leg 30 degrees for 5 sec. 5b. Motor Right Arm: 0=No drift,arm holds 90 degrees for 10 sec., leg 30 degrees for 5 sec. 6a. Motor Left Le=No drift,arm holds 90 degrees for 10 sec., leg 30 degrees for 5 sec. 6b. Motor Right Le=No drift,arm holds 90 degrees for 10 sec., leg 30 degrees for 5 sec. 7. Limb Ataxia: 0=Absent 9. Best Language: 0=No aphasia 10. Dysarthria: 0=Normal 11. Extincion and Inattention: 0=Normal Stroke Scale Total: 0 Interpretation - Radiology Interpretation Radiology Interpretation By: Radiologist Radiology Results: No acute changes Exam Interpreted: CT Scan Procedures - Lumbar Puncture Position of Patient: Sitting Local Anesthetic Used: Yes Lumbar Space Used for Insertion: l4/l5 Number of Attempts: 3 Spinal Fluid Obtained: No Re-Evaluation - Re-Evaluation Time of Re-Evaluation: 14:00 Status: Improved Vital Signs Stable: Yes Pain Level: with neck movement some pain Appearance: NAD Lungs: Clear Skin: Warm and Dry Neuro: Alert and Oriented X3 CV: RRR - Re-Evaluation Time of Re-Evaluation: 15:26 Status: Unchanged Vital Signs Stable: Yes Pain Level: see above Appearance: NAD Skin: Warm and Dry Neuro: Alert and Oriented X3 CV: RRR Physician Notification - Case Discussed Physician Notified: [email or web address] Time of Notification: 16:00 (stated send pt to ed for LP AT [facility]) Critical Care Note - Critical Care Note Total Time (mins): 0 Course - Course Hematology/Chemistry: 07/30/18 13:35 07/30/18 13:35 Orders, Labs, Meds: Lab Review 07/30/18 07/30/18 07/30/18 13:30 13:35 13:35 WBC 8.78 RBC 5.36 Hgb 15.4 Hct 46.5 MCV 86.8 MCH 28.7 MCHC 33.1 RDW Coeff of Caitlin 14.6 Plt Count 179 Immature Gran % (Auto) 0.3 Neut % (Auto) 86.9 Lymph % (Auto) 3.6 L [place] % (Auto) 8.4 Eos % (Auto) 0.6 Baso % (Auto) 0.2 Immature Gran # (Auto) 0.0 Neut # (Auto) 7.6 H Lymph # (Auto) 0.3 L [place] # (Auto) 0.7 Eos # (Auto) 0.1 Baso # (Auto) 0.0 PT INR APTT Sodium 135.9 Potassium 3.90 Chloride 103.0 Carbon Dioxide 24.5 Anion Gap 12.30 BUN 12.6 Creatinine 0.68 Estimated GFR (MDRD) 100.00 BUN/Creatinine Ratio 18.52 Glucose 107.7 H Lactic Acid Calcium 8.99 Total Bilirubin 0.36 AST 39.6 H ALT 67.0 H Alkaline Phosphatase 112.9 Total Protein 7.38 Albumin 4.16 Globulin 3.22 Albumin/Globulin Ratio 1.29 Procalcitonin Serum , Qual Influ A Molecular Assay Negative by naat Influ B Molecular Assay Negative by naat 07/30/18 07/30/18 07/30/18 13:35 13:35 13:35 WBC RBC Hgb Hct MCV MCH MCHC RDW Coeff of Caitlin Plt Count Immature Gran % (Auto) Neut % (Auto) Lymph % (Auto) [place] % (Auto) Eos % (Auto) Baso % (Auto) Immature Gran # (Auto) Neut # (Auto) Lymph # (Auto) [place] # (Auto) Eos # (Auto) Baso # (Auto) PT INR APTT Sodium Potassium Chloride Carbon Dioxide Anion Gap BUN Creatinine Estimated GFR (MDRD) BUN/Creatinine Ratio Glucose Lactic Acid 0.79 Calcium Total Bilirubin AST ALT Alkaline Phosphatase Total Protein Albumin Globulin Albumin/Globulin Ratio Procalcitonin 0.28 Serum , Qual Negative Influ A Molecular Assay Influ B Molecular Assay 07/30/18 13:35 WBC RBC Hgb Hct MCV MCH MCHC RDW Coeff of Caitlin Plt Count Immature Gran % (Auto) Neut % (Auto) Lymph % (Auto) [place] % (Auto) Eos % (Auto) Baso % (Auto) Immature Gran # (Auto) Neut # (Auto) Lymph # (Auto) [place] # (Auto) Eos # (Auto) Baso # (Auto) PT 10.7 INR 1.07 APTT 25.1 Sodium Potassium Chloride Carbon Dioxide Anion Gap BUN Creatinine Estimated GFR (MDRD) BUN/Creatinine Ratio Glucose Lactic Acid Calcium Total Bilirubin AST ALT Alkaline Phosphatase Total Protein Albumin Globulin Albumin/Globulin Ratio Procalcitonin Serum , Qual Influ A Molecular Assay Influ B Molecular Assay Orders Category Date Time Status ED IV/MEDIPORT/POWERPORT .ONCE EMERGENCY 07/30/18 13:21 Active BLOOD CULTURE (ED ONLY) Stat LAB 07/30/18 13:35 Received CBC W/ AUTO DIFF Stat LAB 07/30/18 13:35 Completed COMPREHENSIVE METABOLIC PANEL Stat LAB 07/30/18 13:35 Completed FLU A/B MOLECULAR Stat LAB 07/30/18 13:30 Completed LACTIC ACID Stat LAB 07/30/18 13:35 Completed MOLECULAR GROUP A STREP Stat LAB 07/30/18 13:30 Completed PARTIAL THROMBOPLASTIN TIME Stat LAB 07/30/18 13:35 Completed PROCALCITONIN Stat LAB 07/30/18 13:35 Completed PT WITH INR Stat LAB 07/30/18 13:35 Completed SERUM Stat LAB 07/30/18 13:35 Completed URINALYSIS C & S IF INDICATED Stat LAB 07/30/18 13:19 Uncollected URINE DRUG SCREEN (RAPID FOR ED) [DRUG SCREEN, URINE, LAB 07/30/18 14:55 Uncollected RAPID] Stat 0.9 % Sodium Chloride [Saline Flush] MEDS 07/30/18 13:20 Active 1 syr IVF PRN PRN Ceftriaxone Sodium [Rocephin] MEDS 07/30/18 13:33 Discontinued 2 gm .ROUTE .STK-MED ONE Ceftriaxone Sodium [Rocephin] 2 gm MEDS 07/30/18 13:21 Discontinued 0.9 % Sodium Chloride [Sodium Chloride] 100 ml IV ONCE Hydromorphone HCl [Dilaudid 0.5 mg/0.5 ml Syringe] MEDS 07/30/18 15:20 Discontinued 0.5 mg IVP ONCE STA Ondansetron HCl/Pf [Zofran 4 mg/2 ml] MEDS 07/30/18 13:22 Discontinued 8 mg IVP ONCE STA CT CHEST W/O CONTRAST Stat RADS 07/30/18 13:[address] HEAD W/O CONTRAST Stat RADS 07/30/18 13:20 Completed Medications Generic Name Dose Route Start Last Admin Trade Name Freq PRN Reason Stop Dose Admin Sodium Chloride 1 syr 07/30/18 13:20 07/30/18 13:47 Saline Flush IVF 1 syr PRN PRN Administration To flush IV Discontinued Medications Generic Name Dose Route Start Last Admin Trade Name Freq PRN Reason Stop Dose Admin Hydromorphone HCl 0.5 mg 07/30/18 15:20 07/30/18 15:29 Dilaudid 0.5 Mg/0.5 Ml Syringe IVP 07/30/18 15:21 0.5 mg ONCE STA Administration Ceftriaxone Sodium 2 gm/ 100 mls @ 100 mls/hr 07/30/18 13:21 07/30/18 15:30 Sodium Chloride IV 07/30/18 14:20 100 mls/hr ONCE STA Administration Ondansetron HCl 8 mg 07/30/18 13:22 07/30/18 13:47 Zofran 4 Mg/2 Ml IVP 07/30/18 13:23 8 mg ONCE STA Administration Vital Signs: Temp Pulse Resp BP Pulse Ox 07/30/18 13:07 98.1 F 94 H 20 109/70 96 Departure - Departure Time of Disposition: 16:11 Disposition: TSF SHORT-TRM HOSP Discharge Problem: Nausea, Vomiting Headache Qualifiers: Headache type: unspecified Headache chronicity pattern: unspecified pattern Intractability: not intractable Qualified Code(s): R51 - Headache Instructions: Acute Headache (ED) Condition: Good Pt referred to PMD for follow-up: Yes IPMP verified?: No Allergies/Adverse Reactions: Allergies No Known Allergies Allergy (Verified 07/30/18 13:08) Home Medications: Ambulatory Orders Ibuprofen 800 mg PO PRN 03/19/18
== END 2018-07-30 16:15 | disposition short-term general hospital (02) ==
LOC: ED 13:07
DX: R11.2 Nausea with vomiting, unspecified (principal); R51 Headache; M54.2 Cervicalgia; F17.210 Nicotine dependence, cigarettes, uncomplicated
CPT/HCPCS: 36415; 80053; 83605; 84145; 84703; 85025; 85610; 85730; 87040; 87502; 87651; 96365; 96375; 99285

== ENCOUNTER 2018-07-30 16:02 | Outpatient (CLI) ==
[2018-07-30 13:08] VITALS: BMI 22.4
== END 2018-07-30 16:16 | disposition short-term general hospital (02) ==
LOC: AMBL 16:02
PROVIDERS: ATTEND Internal Medicine
DX: R11.2 Nausea with vomiting, unspecified (principal); R51 Headache; M54.2 Cervicalgia; R53.1 Weakness

== ENCOUNTER 2018-10-06 18:14 | Emergency (ER) ==
[2018-10-06 18:19] VITALS: BP 129/83; TEMP 97.9; BMI 23.0
--- NOTE | 2018-10-06 18:40 | ED.PDOC ---
General ED Provider: Dr. REINA WRAD Chief Complaint: Head Laceration Stated Complaint: superficial and linear 3 cm simple scalp laceration,parieta region left center. Time Seen by Physician: 18:20 Mode of Arrival: Walk-In Information Source: Patient Exam Limitations: No limitations Primary Care Provider: PING CARTER Nursing and Triage Documentation Reviewed and Agree: Yes Does patient meet sepsis criteria?: No System Inflammatory Response Syndrome: Not Applicable Sepsis Protocol: For patient's 13 years and over: Temp is 96.8 and below OR 101 and greater Pulse >90 BPM Resp >20/minute Acutely Altered Mental Status Are patient's symptoms suggestive of a new infection, such as: -Pneumonia -Skin, Soft Tissue -Endocarditis -UTI -Bone, Joint Infection -Implantable Device -Acute Abdominal Infection -Wound Infection -Meningitis -Blood Stream Catheter Infection -Unknown Skin Complaint Exam - Skin/Soft Tissue Complaint/Exam Onset/Duration: today had scalp lacerated at home Symptoms Are: Still present Timing: Constant Initial Severity: Mild Current Severity: Mild Character: Reports: Redness, Painful Aggravating: Reports: None Alleviating: Reports: None Related Surgical History: Reports: None Recent Exposure to Others w/Similar Symptoms: No Skin Findings: Present: Other Differential Diagnoses: Other Review of Systems - Review Of Systems Constitutional: Reports: No symptoms Eyes: Reports: No symptoms Ears, Nose, Mouth, Throat: Reports: No symptoms Respiratory: Reports: No symptoms Cardiac: Reports: No symptoms GI: Reports: No symptoms : Reports: No symptoms Musculoskeletal: Reports: No symptoms Skin: Reports: Lesions Neurological: Reports: No symptoms Endocrine: Reports: No symptoms Hematologic/Lymphatic: Reports: No symptoms All Other Systems: Reviewed and Negative Past Medical History - Past Medical History Previously Healthy: Yes Endocrine: Reports: None Cardiovascular: Reports: None Respiratory: Reports: Asthma Hematological: Reports: None Gastrointestinal: Reports: None Genitourinary: Reports: None Neuro/Psych: Reports: None Musculoskeletal: Reports: None Cancer: Reports: None Last Menstrual Period: now - Surgical History General Surgical History: Reports: Cholecystectomy, Tonsillectomy, Orthopedic ( Right foot ), Other (Nose ) - Family History Family History: Reports: Unknown - Social History Smoking Status: Current some day smoker Hx Substance Use: No Alcohol Screening: None - Immunizations Tetanus Shot up to Date: No (unknown) Physical Exam - Physical Exam Appearance: Well-appearing Ill-appearing: None Pain Distress: Mild Eyes: BUBBA ENT: Ears normal Neck: Supple Respiratory: Airway patent Cardiovascular: RRR GI/: Soft Musculoskeletal: Normal strength Skin: Warm, Dry Neurological: Sensation intact Procedures - Laceration/Wound Repair No standard instances Wound Length (cm): 3cm Wound Width: 3mm Wound Depth: 1mm Wound Explored: Clean Wound Irrigated: Yes Wound Prep: Hibiclens Wound Debrided: Minimal Wound Margins: Other Wound Repaired With: Advance Number of Advance: 3 Layer Closure?: No Sterile Dressing Applied?: Yes Splint Applied?: No Sling Applied?: No Critical Care Note - Critical Care Note Total Time (mins): 0 Course - Course Orders, Labs, Meds: Orders Category Date Time Status Ibuprofen [Motrin] MEDS 10/06/18 18:51 Stat 800 mg PO ONCE STA Tetanus and Diphtheria Tox/Pf [Tenivac] MEDS 10/06/18 18:51 Once 0.5 ml IM .ONCE ONE Vital Signs: Temp Pulse Resp BP Pulse Ox 10/06/18 18:15 97.9 F 86 16 129/83 98 Departure - Departure Time of Disposition: 18:52 Disposition: HOME SELF-CARE Discharge Problem: Laceration of scalp without complication Instructions: Staple Care (ED) Condition: Good Pt referred to PMD for follow-up: Yes (folow with PCP for ana removal.3/) IPMP verified?: No Allergies/Adverse Reactions: Allergies No Known Allergies Allergy (Verified 10/06/18 18:19) Home Medications: Ambulatory Orders Ibuprofen 800 mg PO PRN 03/19/18 Disposition Discussed With: Patient
[2018-10-06] MEDS ORDERED: TENIVAC IM ONE (18:51)
[2018-10-06] MEDS ORDERED: MOTRIN PO STA (18:51)
== END 2018-10-06 19:20 | disposition home or self-care (01) ==
LOC: ED 18:14
DX: S01.01XA Laceration without foreign body of scalp, initial encounter (principal); W22.8XXA Striking against or struck by other objects, initial encounter; F17.210 Nicotine dependence, cigarettes, uncomplicated
CPT/HCPCS: 90471; 90714; 99283